=== PATIENT | female | born 1945 | race Caucasian/White ===

== ENCOUNTER 2017-08-02 13:52 | Inpatient (IN) | payer MEDICARE ==
[2017-08-02] MEDS ORDERED: Labetalol HCl 100 MG/20 ML VIAL ONE (14:43)
--- NOTE | 2017-08-02 14:53 | CT ---
CT BRAIN WITHOUT CONTRAST: HISTORY: Right-sided weakness. The patient was given TPA at [place] and now has frontal headache. FINDINGS: Comparison is made to the earlier exam of 12:22 p.m. from the same date. No evidence of acute infarct, hemorrhage, midline shift, or abnormal extraaxial fluid collections ar e seen. 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 The ventricular size is stable and the ci sterns patent. The bony calvarium is intact. IMPRESSION: No CT evidence of acute intracranial process. The report was called over the telephone to ER physician, Dr. Oumar Cox, at 2:12 p.m. CODE CR POS: WILBERT
[2017-08-02] MEDS ORDERED: Mag-Al 1200 mg/1200 mg/30 ML UDCUP PO PRN (14:54)
[2017-08-02] MEDS ORDERED: Guaifenesin DM 100-10/5 ML UDCUP PO PRN (14:54)
[2017-08-02] MEDS ORDERED: Docusate 100 MG CAP PO PRN (14:54)
[2017-08-02] MEDS ORDERED: niCARdipine 20MG in NaCl 200 ML BAG IVPB PRN (14:54)
[2017-08-02] MEDS ORDERED: Labetalol HCl 100 MG/20 ML VIAL SLOW IVP PRN (14:54)
[2017-08-02] MEDS ORDERED: Dextrose 50% Abboject 50 ML SYRINGE SLOW IVP PRN (15:52)
[2017-08-02] MEDS ORDERED: Dextrose 5% in Water 1,000 ML IV PRN (15:52)
[2017-08-02] MEDS ORDERED: HumaLOG 300 UNITS/3 ML VIAL SC PRN ×2 (15:52)
[2017-08-02] MEDS ORDERED: ISOVUE-370 76%-LOCM 1 ML ONE (16:28)
[2017-08-02] MEDS ORDERED: Acetaminophen 325 MG TAB ONE (18:25)
[2017-08-02] MEDS: Sodium Chloride 0.9% 1,000 ML IV SCH (20:55)
[2017-08-02] MEDS ORDERED: Famotidine/PF 20 mg/2ml Vial SLOW IVP SCH (21:00)
[2017-08-02] MEDS: Atorvastatin Calcium 20 MG TAB PO SCH (21:00)
--- NOTE | 2017-08-02 21:45 | HP ---
The patient is city call. REASON FOR ADMISSION: Right hemiparesis, status post TPA. HISTORY OF PRESENT ILLNESS: Please note the majority of this history is obtained by my talking to patient's friend of 25 years who is here at bedside and patient's son, Mr. Green along with ER records as patient is not oriented. She keeps asking where she is and is confused. Per friend who is here, they both were traveling from [place] in the car and she dropped her off prior to noon to her home. Around 11:55 a.m., patient was talking to her daughter over telephone and did not make sense and she told her that she could not feel her right arm. The daughter in turn called her friend and the friend went to check on her personally and she was flailing about her right upper and lower extremities and was confused. She called 911 and the patient was taken to [facility]. Patient was within the window for TPA and was started on it for right hemiparesis. Here in the emergency room at [facility], the patient has been progressively getting confused and a repeat CT head without contrast was done which did not reveal any bleeding. She also had CT angio with perfusion done, the official results are pending at present. PAST MEDICAL AND SURGICAL HISTORY: Diabetes mellitus type 2, dyslipidemia, coronary artery disease with 2 stents put in 10 years ago. Has had some sort of carotid surgery 42 years ago, cholecystectomy, hysterectomy. CURRENT MEDICATIONS: Does not take any medications. ALLERGIES: No known drug allergies. PERSONAL HISTORY: Smokes one pack a day, does not abuse alcohol or drugs. She lives alone and is fully functional. 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 FAMILY HISTORY: Mom at the age of 88 years and father young and it is unclear the exact reason why. Power of assistant district attorney is the patient's son Mr. Green, the number to reach him is [phone]. Patient's daughter, Ms. Jane, the number to reach her is [phone]. REVIEW OF SYSTEMS: Cannot be obtained as patient is confused at present. PHYSICAL EXAMINATION: GENERAL: The patient is a 72-year-old female who is confused, but not in any distress. VITAL SIGNS: Blood pressure on arrival was 206/101 at [place] [facility], pulse 104 per minute, respiratory rate 20 per minute, temperature 98.1 degrees Fahrenheit, saturating 98% on 2 liters nasal cannula. NECK: Supple, no elevated JVD. HEENT: Extraocular muscles intact. Pupils reacting to light. Oral cavity mucous membranes are dry. No exudates or congestion. CARDIOVASCULAR: S1, S2 heard. Loud S2, no murmur. RESPIRATORY: Air entry 1+ bilateral. Scattered rhonchi plus no wheezes or rales. ABDOMEN: Soft, bowel sounds heard. No tenderness, rigidity or guarding. EXTREMITIES: No peripheral edema or calf tenderness. VASCULAR SYSTEM: Peripheral pulses 1+ bilateral. No ischemic ulcerations or gangrene. CENTRAL NERVOUS SYSTEM: Please note patient is confused and cannot participate in neurologic exam. Motor system: Patient appears to have strength of 2-3/5 in the right upper and right lower extremities. Babinski is upgoing in the right and normal on the left. Sensory system and gait cannot be tested due to patient's current confusion. 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 PSYCHIATRIC: The patient appears to be a bit emotional at present. An accurate psychiatric exam cannot be done due to her confusion. LABORATORY AND X-RAY FINDINGS: White count of 11, H\T\H 14 and 44, platelet count 237 with 66% neutrophils, MCV is 81. PT, INR, PTT within normal limits. Electrolytes are fairly stable. BUN 17, creatinine 1.0. Glucose 277. CK level was 25. BNP 210. First set of cardiac enzymes are negative. Albumin is 3.6. She has had 2 CAT scans for the brain without contrast, both show no acute infarct or bleed. Chest x-ray done shows no acute cardiopulmonary abnormalities. There is mild cardiomegaly; otherwise no acute infiltrate. EKG done shows normal sinus rhythm at 92 beats per minute. There is poor R-wave progression. There is also Q-waves in V1 and V2. CLINICAL IMPRESSION AND PLAN: The patient will be admitted to ICU for acute CVA status post TPA with right hemiparesis and confusion at present. She will be on aspirin, Lipitor, Pepcid, and normal saline at 100 mL per hour. We will obtain MRI and follow stroke evidence based protocol. We will also follow status post t-PA protocol in ICU. I have spoken to Dr. Areli Echeverria for Neurology and Dr. Gordon for Pulmonology. The patient is maintaining airway at present. Code status is FULL. I have discussed this with Mr. Green, patient's son and power of assistant district attorney. The number to reach him again is [phone]. We will continue to closely monitor her in critical care unit. Her overall prognosis is guarded due to current CVA with confusion. Also, please note patient has not seen a physician for last 2-3 years or so. She also does not have a primary care physician at present. She continues to smoke one pack a day. 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 JENNY
--- NOTE | 2017-08-02 22:37 | PRG ---
DATE OF SERVICE: 08/02/2017 The patient is status post TPA for a right-sided weakness, going to the ICU. The patient has no [facility]. She is [place]. 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 She developed some right-sided weakness, numbness in the right leg, became wob jojo. The daughter called 911. She was brought to the ER came in with a friend and was given appare ntly TPA. On the TPA, she was transferred to [facility] for high level of care. The patient has longstanding history of hypertension, smoking, peripheral vascular disease, and dacosta tid disease. Surprisingly, she takes no medication at this time. Previous surgeries have otherwise included a previous stent in the left carotid and coronary artery stent. Dr. Salcedo, Neurosurgery was consulted after she was given Activase 100 mg and labetalol 10 mg. She now in the ER trying to transfer out of the ER some time. PHYSICAL EXAMINATION: GENERAL: It is to my surprise, she appears in no distress. NEUROLOGIC: She is awake, alert, responsive, moves all 4 extremities. There may be slight confusio n. VITAL SIGNS: Sats are 98%, blood pressure is 140/80, respirations 18. CHEST: With no wheezing or crackles. CARDIAC: Normal S1, S2. No gallops. ABDOMEN: Soft. No masses. LABORATORY DATA: White count 11, hemoglobin and hematocrit 14 and 44, platelet count is normal. IN R is normal. Sodium is 133. BNP is 210. IMAGING: Chest x-ray was normal. She had 2 sets of CTs of the head pre and Post-TPA apparently. N o evidence of intracranial hemorrhage has been seen. Evidence of stenosis in the intracranial posit ion of both carotid arteries was seen. There was evidence of hemodynamic stenosis on the left inter nal carotid. A repeat CT of the head, no evidence of any acute intracranial process was seen. IMPRESSION: 1. Right-sided weakness, status post TPA. Await head and neck CTA with brain perfusion study. 2. Tobacco abuse. 3. Carotid and coronary stents. 4. Hypertension. PLAN: She will be transferred to the ICU, appears to be stable. Await input from Neurology and [facility] rosurgery. Pulmonary-monroy, nothing additional to offer at this time. We will get more history as p atient becomes more responsive.
[2017-08-03] MEDS: Ondansetron HCl/PF 4 MG/2 ML Vial IVP PRN (04:28)
[2017-08-03] MEDS: Sodium Chloride 0.9% 1,000 ML IV SCH ×3 (04:30→23:07)
[2017-08-03 05:46] LABS: #Eosinphils 0.2 thou/uL (0.0-0.7); #Lymphocytes 2.5 thou/uL (1.20-3.40); #Monocytes 0.5 thou/uL (0.11-0.59); #Neutrophils 9.1 thou/uL (1.40-6.50); %Basophils 0.4 % (0.0-1.0); %Eosinophils 1.5 % (0.0-10.0); %Lymphocytes 19.9 % (21.0-51.0); %Monocytes 4.2 % (0.0-10.0); Hematocrit 39.6 % (36.0-47.0); Mean Platelet Volume 7.8 fL (7.4-10.4); White Blood Cell (WBC) Count 12.4 thou/uL (4.8-10.8)
[2017-08-03 06:07] LABS: ALT (SGPT) Less than 7 U/L (8-55); AST (SGOT) 10 U/L (5-34); Alkaline Phosphatase 69 U/L (40-150); Anion Gap 13 mmol/L (10-20); BUN (Urea Nitrogen) 16 mg/dL (9.8-20.1); Bilirubin, Total 0.8 mg/dL (0.2-1.2); Calc. Creatinine Clearance 81 mL/min (70-130); Calcium 8.7 mg/dL (7.8-10.44); Carbon Dioxide 20 mmol/L (23-31); Chloride 105 mmol/L (98-107); Cholesterol 152 mg/dl (< 200 Desired); Estimated GFR-MDRD 65; Globulin 3.5 g/dL (2.4-3.5); LDL Cholesterol, Calculated 89 mg/dL; Protein, Total 6.6 g/dL (6.0-8.3)
--- NOTE | 2017-08-03 06:13 | CON ---
DATE OF CONSULTATION: 08/02/2017 REFERRING PROVIDER: Sarita Stevens MD REASON FOR CONSULTATION: Acute onset right hemiparesis, confusion, stroke alert initiated. HISTORY OF PRESENT ILLNESS: Ms. Fairchild is a pleasant 72-year-old female who has been cons ulted for evaluation of right hemiparesis, confusion and stroke alert was initiated. History is norris sania obtained from patient's medical chart. Apparently, the patient was traveling with her friend from [place] in the car and she dropped her off to her home around 11:55 a.m. The patient was talking to her daughter over the telephone, did not make sense and she told her that she could not feel her right arm. Daughter in turn called her friend and friend went back to check on her per sonally and she was flailing her right upper and lower extremities and was confused. She immediatel y called 911 and patient was brought to the [facility]. On arrival here, the stroke alert was initiated and patient was given IV TPA by ER physician. The patient had a CT head without contrast, which showed no acute intracranial abnormality. She also had a CT angiogram of the head and neck with perfusion. During my evaluation, the patient was able to answer questions appropriate ly; however, had difficulty with coordination with her right upper extremity. PAST MEDICAL HISTORY: Significant for hypertension, diabetes, dyslipidemia, coronary artery disease with stent placement x2, carotid artery stenosis in the past. PAST SURGICAL HISTORY: Significant for CA, cholecystectomy, hysterectomy. CURRENT MEDICATIONS: Please review MAR. ALLERGIES: No known drug allergies. SOCIAL HISTORY: She smokes 1 pack a day. She does not use any alcohol or illicit drugs. She curre ntly lives alone. She is actively independent. FAMILY HISTORY: Noncontributory. REVIEW OF SYSTEMS: Unable to obtain. PHYSICAL EXAMINATION: VITAL SIGNS: Blood pressure of 151/71, pulse of 82, temperature of 99.1, respirations of 20, O2 sat s of 100% on room air. GENERAL: Well-developed, well-nourished female, in no apparent distress. RESPIRATORY: Clear to auscultation bilaterally. CARDIOVASCULAR: Regular rate and rhythm. NEUROLOGIC: Mental status: The patient is awake, alert, oriented x3. Speech and language: Fluent . Cranial nerves: Pupils are 3 mm and reactive. She does not blink to threat on the right side. Extraocular muscles are intact. No nystagmus is noted. Face appears symmetric. Tongue and uvula a re midline. Motor exam showed normal tone and bulk with 4+/5 strength in the right upper and right lower extremity. She has a pronator drift in the right upper extremity and right lower extremity. Sensory: Sensation appears intact. Deep tendon reflexes 2+ reflexes in both upper and lower extrem ities. Babinski: Plantar responses flexion bilaterally. Coordination: There is mild dysmetria no tabatha on [id number]-adibio testing on the right side. LABORATORY DATA: Reviewed, which included CBC, coag panel, CMP, troponin, CK-MB, CPK and BNP, which is significant for WBC of 11.2, sodium of 133, glucose of 277, BNP of 210, otherwise unremarkable. IMAGING STUDIES: CT head without contrast was reviewed, which showed no acute intracranial abnormal ity. Echocardiogram results were reviewed, which showed ejection fraction of 40%-55% with akinetic motion of the apical and distal septal wall and then left ventricle, mild aortic regurg and mild tri cuspid regurgitation. IMPRESSION: 1. Right hemiparesis, likely secondary to cerebral infarction. 2. Hypertension. 3. Diabetes. 4. Coronary artery disease. Ms. Fairchild is a pleasant 72-year-old female who presented with the acute onset of right-si ded weakness and numbness along with poor coordination on the right side. On exam, she has dysmetri a on right side, right side weakness and right hemianopia. She is now status post IV TPA. At this time, I would recommend having close observation of her neurological function over the next 24 hours . I will recommend not starting her on any antiplatelet or anticoagulation therapy for at least 24 hours post-TPA. Maintain systolic blood pressure between 110 to 170. I would also recommend consul ting PT, OT, speech therapy in the morning. I will obtain MRI brain without contrast in the morning . Continue supportive care. Continue current medical management. Thank you for your consultation.
--- NOTE | 2017-08-03 08:11 | CT ---
PRELIMINARY REPORT/[facility]/EMERGENCY AFTER HOURS PROCEDURE: EXAM: CT Head Without Intravenous Contrast CLINICAL HISTORY: 72 years old, female; Signs and symptoms; Altered mental status/memory loss; Confusion or disorienta tion; Patient HX: AMS TECHNIQUE: Axial computed tomography images of the head/brain without intravenous contrast. COMPARISON: No relevant prior studies available. FINDINGS: Brain: Question left occipital hypodensity images 9-11 versus artifact Chronic right cerebellar infarction No hemorrhage. No significant white matter disease. Ventricles: Unremarkable. No ventriculomegaly. Bones/joints: Unremarkable. No acute fracture. Soft tissues: Unremarkable. Sinuses: Unremarkable as visualized. No acute sinusitis. Mastoid air cells: Unremarkable as visualized. No mastoid effusion. IMPRESSION: Question left occipital mild edema versus artifact. Correlate clinically for left occipital infarcti on. Further evaluation with MRI as clinically indicated No intracranial hemorrhage. Please see discussion above. Thank you for allowing us to participate in the care of your patient. Dictated and Authenticated by: León Bateman MD 08/03/2017 12:37 AM Central Time ([place] \T\ Chris) FINAL REPORT CT HEAD: Comparison made to exam of 08/02/2017. There is new lucency in the left occipital lobe when compared to the prior study. Findings are conc erning for acute occipital lobe infarct. Follow-up is recommended. I am in agreement with the preliminary report. Code QA POS: WILBERT
--- NOTE | 2017-08-03 08:40 | PRG ---
DATE OF SERVICE: 08/03/2017 This morning awake, alert, responsive. PHYSICAL EXAMINATION: VITAL SIGNS: Pulse is 100, blood pressure is 140/80, sats 100%, respirations 18. CHEST: Chest revealed decreased breath sounds, no wheezing. CARDIAC: Normal S1, S2. ABDOMEN: Soft, no masses. IMPRESSION: 1. Status post t-PA for right-sided weakness. 2. Tobacco abuse. PLAN: From a pulmonary standpoint of view MRI is being ordered. She can probably be transferred to a stroke unit. Avoid tobacco abuse. Agree with aspirin. Await input from Neurology.
--- NOTE | 2017-08-03 09:45 | PDOC.PN ---
- Subjective Encounter Start Date: 08/03/17 Encounter Start Time: 09:30 Subjective: is awake, oriented well this morning -: still has unco-ordinated action of right extremities -: speech is better - Objective Resuscitation Status: Resuscitation Status FULL:Full Resuscitation MAR Reviewed: Yes Vital Signs & Weight: Vital Signs (12 hours) Temp Pulse Resp BP Pulse Ox 08/03/17 09:03 101 H 163/76 H 08/03/17 07:00 98.0 F 08/03/17 06:24 101 H 14 98 08/03/17 04:00 97.9 F 08/02/17 22:22 91 18 100 Most Recent Monitor Data Heart Rate from ECG 98 NIBP 141/66 NIBP BP-Mean 79 Respiration from ECG 20 SpO2 99 I&O: 08/02/17 08/03/17 08/04/17 06:59 06:59 06:59 Intake Total 1134.5 Output Total 1930 150 Balance -795.5 -150 Result Diagrams: 08/03/17 04:22 08/03/17 04:22 Additional Labs: Accuchecks 08/03/17 08/03/17 05:28 00:43 POC Glucose 286 H 192 H Phys Exam - Physical Examination HEENT: PERRLA, moist MMs Neck: no JVD, supple Respiratory: no wheezing, no rales Cardiovascular: RRR, no significant murmur Gastrointestinal: soft, non-tender, positive bowel sounds Musculoskeletal: no edema, pulses present Neurological: moves all 4 limbs right hemiparesis Psychiatric: A&O x 3 Dx/Plan (1) CVA (cerebral vascular accident) Code(s): I63.9 - CEREBRAL INFARCTION, UNSPECIFIED Status: Acute Qualifiers: CVA mechanism: unspecified Qualified Code(s): I63.9 - Cerebral infarction, unspecified Comment: right hemiparesis (2) HTN (hypertension) Code(s): I10 - ESSENTIAL (PRIMARY) HYPERTENSION Status: Chronic Qualifiers: Hypertension type: essential hypertension Qualified Code(s): I10 - Essential (primary) hypertension (3) DM type 2 (diabetes mellitus, type 2) Status: Chronic Qualifiers: Diabetes mellitus complication status: with unspecified complications Diabetes mellitus terminal gauger insulin use: without correction use Qualified Code( s): E11.8 - Type 2 diabetes mellitus with unspecified complications (4) Dyslipidemia Code(s): E78.5 - HYPERLIPIDEMIA, UNSPECIFIED Status: Chronic (5) Noncompliance with medication regimen Code(s): Z91.14 - PATIENT'S OTHER NONCOMPLIANCE WITH MEDICATION REGIMEN Status : Chronic - Plan echo shows ef of 45% with wall motion abno, outpt w/u -: has cognitive improvement with confusion resolving -: will start asp, lipitor and norvasc -: oral diet if cleared by speech, d/w over phone and gave updates -: levemir 10u bid for now, oral meds on discharge * . Review of Systems - Medications/Allergies Allergies/Adverse Reactions: Allergies Allergy/AdvReac Type Severity Reaction Status Date / Time No Known Drug Allergies Allergy Verified 08/02/17 19:56 Medications: Current Medications Acetaminophen (Tylenol) 650 mg PO Q6H PRN PRN Reason: Headache/Fever or Pain Al Hydroxide/Mg Hydroxide (Maalox) 30 ml PO QIDPRN PRN PRN Reason: Dyspepsia Albuterol/Ipratropium (Duoneb) 3 ml NEB [id number] [facility] Last Admin: 08/03/17 06:24 Dose: 3 ml Amlodipine Besylate (Norvasc) 10 mg PO DAILY [facility] Last Admin: 08/03/17 09:03 Dose: 10 mg Aspirin (Ecotrin) 325 mg PO DAILY [facility] Atorvastatin Calcium (Lipitor) 20 mg PO HS [facility] Last Admin: 08/02/17 21:00 Dose: 20 mg Dextrose/Water (Dextrose 50%) 25 gm SLOW IVP PRN PRN PRN Reason: Hypoglycemia Docusate Sodium (Colace) 100 mg PO BIDPRN PRN PRN Reason: Constipation Glucagon (Glucagon) 1 mg IM PRN PRN PRN Reason: Hypoglycemia Guaifenesin/Dextromethorphan (Robitussin Dm) 15 ml PO Q4H PRN PRN Reason: Cough Sodium Chloride (Normal Saline 0.9%) 1,000 mls @ 100 mls/hr IV .Q10H [facility] Last Admin: 08/03/17 04:30 Dose: Not Given Dextrose/Water (D5w) 1,000 mls @ 0 mls/hr IV .Q0M PRN; As Directed PRN Reason: Hypoglycemia Insulin Human Lispro (Humalog) 0 units SC .MODERATE SLIDING SC PRN PRN Reason: Moderate Correctional Scale Last Admin: 08/03/17 05:32 Dose: 4 unit Insulin Human Lispro (Humalog) 0 units SC .BEDTIME SLIDING SC PRN PRN Reason: Bedtime Correctional Scale Labetalol HCl (Normodyne) 10 mg SLOW IVP Q2H PRN PRN Reason: SBP > 180 Ondansetron HCl (Zofran) 4 mg IVP Q6H PRN PRN Reason: Nausea/Vomiting Last Admin: 08/03/17 04:28 Dose: 4 mg Sodium Chloride (Flush - Normal Saline) 10 ml IVF Q12HR LUI Last Admin: 08/03/17 09:03 Dose: 10 ml Sodium Chloride (Flush - Normal Saline) 10 ml IVF PRN PRN PRN Reason: Saline Flush
--- NOTE | 2017-08-03 14:25 | MRI ---
MRI BRAIN WITHOUT CONTRAST: HISTORY: CVA. COMPARISON: Multiple prior CTs, the most recent same day at 12:23 a.m. FINDINGS: On the diffusion weighted imaging sequence, there are multifocal areas of acute infarction. This in cludes the left occipital lobe as well as the left and right medial occipital lobes, left thalamus, right posterior limb internal capsule. On the ADC map, there is also a marked hypodensity of the ri ght mid brain, although this does not have abnormal signal on the DWI sequence. 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 Moderate microvascular ischemic changes of the sub cortical and deep white matter. IMPRESSION: Multifocal areas of infarction, largest in the left RECORDINGS LIBRARIAN territory suggesting embolic phenomenon. Re commend echocardiographic evaluation for vegetations of the aortic valve. Bilateral shadowing embol i from carotid plaques are also a possibility. CODE: T POS: WILBERT
--- NOTE | 2017-08-03 15:34 | CT ---
CT ANGIO HEAD WITH AND WITHOUT CONTRAST WITH PERFUSION: HISTORY: Stroke protocol. Right-sided weakness. TECHNIQUE: Multiple axial tomograms obtained through the head without contrast. This was followed by a CT angio of the head with contrast with multiplanar reconstruction and 3D post processing. FINDINGS: Atherosclerotic changes are seen in both intracranial internal carotid arteries. There is significant stenosis in the intracranial left internal carotid artery as it exits the temporal bone in the precavernous segment. The left M1 segment appears unremarkable, as does the left anterior cerebral. The M2 and M3 branches on the left appear intact. There is atherosclerotic change in the intracranial right internal carotid artery as well. There is evidence of high grade stenosis in the intracranial right internal carotid artery in the petrous and precavernous segments. There is also evidence of focal stenosis at the origin of the right M1 segment, at the carotid terminus. The more peripheral M1 segment and the M2 and m3 branches appear patent. the right anterior cerebral is patent. The basilar artery is patent. The posterior cerebrals appear symmetric and patent. Perfusion images show question of ischemia in right cerebral hemisphere on mean transit time study. IMPRESSION: 1. There is evidence of stenosis in the intracranial portion of both internal carotid arteries, as described above. 2. Evidence of focal stenosis at the origin of the right M1 segment. 3. Question ischemia right cerebral hemisphere on perfusion study. CT NECK: TECHNIQUE: Multiple axial tomograms obtained through the neck with IV enhancement with multiplanar reconstruction and 3D post processing. FINDINGS: There is atherosclerotic change at the arch. There is irregular plaque and moderate stenosis at the origin of the left common carotid. There is diffuse plaque throughout the left common carotid artery with an irregular lumen. At the left bifurcation, there is soft and hard plaque extending in the proximal left ICA. This does appear to result in moderate hemodynamically stenosis in the proximal left ICA, probably approaching 50% diameter stenosis. The right common carotid artery shows diffuse plaque throughout its course with no significant stenosis. There is plaque in the right bulb and proximal right ICA; however, no significant stenosis is seen in the right extracranial ICA. Review of soft tissues reveals two enhancing masses involving the left parotid gland. The larger one measures approximately 3 cm in diameter and the smaller, more peripheral one, measures 1.6 cm in diameter. There are two small enhancing nodules along the inferior border of the right parotid, the largest measuring 0.8 cm and the smaller measuring 0.7 cm. IMPRESSION: 1. Atherosclerotic changes at the arch are seen, and there is evidence of moderate stenosis at the origin of the left common carotid. 2. Evidence of hemodynamically significant stenosis at the origin of the left internal carotid artery with stenosis approaching 50% diameter stenosis, according to NASCET criteria. 3. There are bilateral enhancing masses involving both parotids, larger on the left, as described above. Warthin's tumors would be suspected; however, biopsy is indicated. The findings were relayed to Dr. Cox. CODE CR
[2017-08-03] MEDS ORDERED: Insulin Detemir 100 UNITS/ML 10 UNITS in Pre-Filled Syringe 1 EACH SC SCH (21:00)
[2017-08-03] MEDS: Atorvastatin Calcium 20 MG TAB PO SCH (21:16)
[2017-08-03] MEDS: Acetaminophen 325 MG TAB PO PRN (21:25)
--- NOTE | 2017-08-04 02:06 | CON ---
DATE OF CONSULTATION: 08/03/2017 HISTORY OF PRESENT ILLNESS: Vitor Fairchild is a 72-year-old white female who was admitted with right-sided weakness, confusion and difficulty talking. She was taken to emergency room in [place] and had right hemiparesis. She was started on TPA and transferred here. The patient denies any recent chest discomfort or shortness of breath. She states that her speech has improved since yesterday. PAST MEDICAL HISTORY: Diabetes, hypercholesterolemia, coronary artery disease with 2 stents placed 8-10 years ago in [place]. OPERATIONS: Probable right carotid endarterectomy 30 years ago, cholecystectomy , and hysterectomy. MEDICATIONS: None. ALLERGIES: None. SOCIAL HISTORY: She smokes 1 pack per day. She does not drink. 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 FAMILY HISTORY: Negative for coronary artery disease. REVIEW OF SYSTEMS: Difficult to obtain due to the patient's relative aphasia. PHYSICAL EXAMINATION: VITAL SIGNS: Blood pressure 115/69, pulse of 94. HEENT: PERRL. NECK: Supple. CHEST: Clear. CARDIAC: S1 and S2 are normal without any S3, S4 or murmurs. Carotid upstrokes normal without bruits. ABDOMEN: Normal bowel sounds without tenderness or organomegaly. EXTREMITIES: Revealed no clubbing, cyanosis or edema. NEUROLOGIC: The patient has difficulty with vision and word naming. Her right upper extremity strength is equal to the left. Right leg is somewhat weak. SKIN: Warm and dry. LABORATORY DATA: I do not see an EKG on the chart. White count 12,400, hemoglobin 13.0, hematocrit 39.6, platelets 220,000. INR 1.0. Sodium 134, potassium 4.3, chloride 105, carbon dioxide 20, BUN 16, creatinine 0.86. BNP 210.0. Troponin I is normal. Cholesterol 152, triglycerides 137, HDL 36, LDL 89. MRI of the brain revealed multifocal areas of infarction, the largest in the left posterior cerebral artery territory suggesting an embolic phenomenon. It was recommended that a transesophageal echo will be performed to rule out vegetations or intracardiac thrombus. IMPRESSION: 1. Cerebrovascular accident with right-sided weakness and mild aphasia as well as visual changes, treated with TPA. 2. Hypercholesterolemia, untreated. 3. Smoker. 4. Probable right carotid endarterectomy in the past. 5. History of 2 coronary artery stents placed. 6. Noncompliance with aspirin. PLAN: Transesophageal echo will be arranged. MTDD
[2017-08-04] MEDS: Ondansetron HCl/PF 4 MG/2 ML Vial IVP PRN (04:38)
--- NOTE | 2017-08-04 06:50 | PRG ---
DATE OF SERVICE: 08/03/2017 SUBJECTIVE: Ms. Fairchild has noted no significant change in her symptoms over the past 24 hours. She continues to have some confusion. She also continues to neglect her right side. She has a poor co ordination with the right upper extremity. Her son is at bedside. PHYSICAL EXAMINATION: VITAL SIGNS: Blood pressure of 148/70, pulse of 88, temperature 99.7, respirations of 18, O2 sats o f 95% on room air. GENERAL: Well-developed, well-nourished female, in no apparent distress. RESPIRATORY: Clear to auscultation bilaterally. CARDIOVASCULAR: Regular rate and rhythm. NEUROLOGICAL: Mental status: The patient is awake, alert, oriented x2. Speech and language: Appe ars fluent. Cranial nerves: Pupils are 3 mm and reactive. She has a right hemianopia with right n eglect. Extraocular muscles are intact. No nystagmus is noted. Face is symmetric. Motor exam ramya wed normal tone and bulk with 5/5 strength . She has a pronator drift on the right upper and r ight lower extremity. Coordination: Dysmetria to [id number] on the right side. IMAGING STUDIES: MRI brain without contrast was reviewed, which showed multiple embolic ischemic st roke in both the cerebral hemispheres, more prominent in the left occipital and thalamic region. IMPRESSION: 1. Cardioembolic ischemic stroke. 2. Right hemianopia, due to #1. 3. Discoordination, due to #1. Ms. Fairchild is a pleasant 72-year-old female who presented with the right-sided numbness an d weakness and difficulty with speech. She had MRI brain done, which did show an acute ischemic inf arct involving both the cerebral hemispheres, more prominent on the left side compared to the right side. Based on the location of the stroke, this is likely cardioembolic in origin. At this time, I agree with obtaining a transesophageal echocardiogram for further evaluation. If the transesophage al echocardiogram does not elicit the cause for her stroke then it may be important to obtain a loop recording monitor to rule out paroxysmal atrial fibrillation as the cause for her recent cardioembo lic event. I would recommend starting her on aspirin 325 mg daily for secondary stroke prevention. I have discussed with the son in detail and explained the current plan. She will be okay to be dis charged to rehab once medically ready.
--- NOTE | 2017-08-04 07:21 | PDOC.PN ---
- Subjective Encounter Start Date: 08/04/17 Encounter Start Time: 07:19 Subjective: Slept well last night -: Son at bedside -: No f/c - Objective Resuscitation Status: Resuscitation Status FULL:Full Resuscitation MAR Reviewed: Yes Vital Signs & Weight: Vital Signs (12 hours) Temp Pulse Resp BP Pulse Ox 08/04/17 06:00 159/74 H 08/04/17 05:07 94 L 08/04/17 00:00 98 F 76 20 114/57 L 92 L 08/03/17 20:00 99.7 F H 88 18 148/70 H 95 Weight Weight 176 lb 9.6 oz Most Recent Monitor Data Heart Rate from ECG 94 NIBP 115/69 NIBP BP-Mean 91 Respiration from ECG 16 SpO2 99 I&O: 08/03/17 08/04/17 08/05/17 06:59 06:59 06:59 Intake Total 1134.5 2170 Output Total 1930 1955 Balance -795.5 215 Result Diagrams: 08/03/17 04:22 08/03/17 04:22 Additional Labs: Accuchecks 08/03/17 08/03/17 20:05 18:31 POC Glucose 167 H 148 H Phys Exam - Physical Examination Constitutional: NAD HEENT: moist MMs, sclera anicteric Neck: no nodes, no JVD Respiratory: no wheezing, no rales, no rhonchi Gastrointestinal: soft, non-tender, positive bowel sounds Musculoskeletal: pulses present Skin: no rash, normal turgor, cap refill <2 seconds Dx/Plan (1) CVA (cerebral vascular accident) Code(s): I63.9 - CEREBRAL INFARCTION, UNSPECIFIED Status: Acute Qualifiers: CVA mechanism: unspecified Qualified Code(s): I63.9 - Cerebral infarction, unspecified Comment: right hemiparesis (2) DM type 2 (diabetes mellitus, type 2) Status: Chronic Qualifiers: Diabetes mellitus complication status: with unspecified complications Diabetes mellitus assisted insulin use: without assisted use Qualified Code( s): E11.8 - Type 2 diabetes mellitus with unspecified complications (3) Dyslipidemia Code(s): E78.5 - HYPERLIPIDEMIA, UNSPECIFIED Status: Chronic (4) HTN (hypertension) Code(s): I10 - ESSENTIAL (PRIMARY) HYPERTENSION Status: Chronic Qualifiers: Hypertension type: essential hypertension Qualified Code(s): I10 - Essential (primary) hypertension - Plan CVA (Multifocal areas of infarction) - likely cardioembolic etiology * Presented with Right sided weakness/numbness, altered speech * echo shows EF of 40-45% with WMA; needs outpt f/u * Confusion improving * Started ASA, Lipitor, Norvasc * appreciate cardiology input - IZABELA planned * appreciate neurology input * appreciate rehab consult h/o CAD s/p 2 stents * appreciate cardiology input DM2 * increase levemir to 12u bid * f/u accu checks
[2017-08-04] MEDS: Insulin Detemir 100 UNITS/ML 12 UNITS in Pre-Filled Syringe 1 EACH SC SCH ×2 (07:42→21:25)
--- NOTE | 2017-08-04 08:53 | PQF ---
CLINICAL DOCUMENTATION IMPROVEMENT CLARIFICATION FORM: ICD-10 Updated PLEASE DO AN ADDENDUM TO THE PROGRESS NOTE WITH ANY DOCUMENTATION UPDATES OR ADDITIONS AND CARRY THROUGH TO DC SUMMARY. THANK YOU. DATE: 08/04 ATTN : DR. JESSI DAWN Please provide a response below if a more specific term indicating a diagnosis and/or acuity level for this condition can be identified. Please exercise your independent, professional judgment in responding to the clarification form. Clinical indicators are provided at the bottom of this form for your review. Thank you. [x ] Encephalopathy: Type: [ x ] Acute [ ] Subacute [ ] Chronic Etiology: [ ] Hypertensive [ ] Metabolic [ ] Toxic [ ] Toxic Metabolic [ ] No diagnosis of Encephalopathy [ ] Does not apply to this patient [ ] Unable to determine [ ] Other diagnosis: The following CLINICAL INDICATORS - SIGNS / SYMPTOMS are present in the medical record: ER PRESENTATION 08/02: TRANSFER FROM [place] S/P TPA FOR ACUTE ISCHEMIC CVA ; CONFUSED, ORIENTED TO PERSON ATTENDING PHYSICIAN H&P DOCUMENTATION 08/02: ...PATIENT IS NOT ORIENTED. SHE KEEPS ASKING WHERE SHE IS AND IS CONFUSED. PHYSICAL EXAMINATION: AN ACCURATE PSYCHIATRIC EXAM CANNOT BE DONE DUE TO HER CONFUSION NEUROLOGY PN 08/03: SHE CONTINUES TO HAVE SOME CONFUSION; AWAKE, ALERT, ORIENTED X2 ATTENDING PN 08/04: CONFUSION IMPROVING RISKS: ACUTE EMBOLIC CVA HTN - UNTREATED HYPERCHOLESTEROLEMIA, UNTREATED CURRENT SMOKER TREATMENTS: CCU MONITORING NEURO CHECKS NEUROLOGY CONSULT CARDIOLOGY CONSULT THANK YOU! Bailee (This form is maintained as a part of the permanent medical record) 2014 [employer]. All Rights Reserved Bailee Baez RN, BSN [email or web address] Office: [phone] [facility]
--- NOTE | 2017-08-04 09:17 | PRG ---
DATE OF SERVICE: 08/04/2017 This morning, awake, alert, responsive. She has still weakness in the right upper extremity, but no shortness of breath. PHYSICAL EXAMINATION: VITAL SIGNS: Blood pressure is 152/76, sats are 92% on room air, respiration 14, temperature 98. CHEST: Chest revealed decreased breath sounds, no wheezing. CARDIAC: Normal S1-S2. ABDOMEN: Soft, no masses. IMPRESSION: Status post t-PA for right-sided weakness. 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 PLAN: From a pulmonary standpoint of view I have nothing additional to offer. We will continue neb treatments, supportive care, refrain from smoking. We will follow at a distance. Please call if needed.
[2017-08-04] MEDS ORDERED: Diprivan 40 ML ONE (09:58)
[2017-08-04] MEDS ORDERED: Propofol 200 MG/20 ML VIAL ONE (10:08)
[2017-08-04] MEDS: Acetaminophen 325 MG TAB PO PRN (11:37)
[2017-08-04] MEDS: Aspirin 325 mg Enteric Coated Tablet PO SCH (11:38)
[2017-08-04] MEDS: Sodium Chloride 0.9% 1,000 ML IV SCH ×2 (11:38→21:25)
--- NOTE | 2017-08-04 11:43 | ECHO ---
TRANSESOPHAGEAL ECHOCARDIOGRAM: Date: 08/04/17 This is a 72-year-old female with a CVA. She was advised to undergo a transesophageal echocardiogram to rule out evidence of atrial septal defects, patent foramen ovale, or intracardiac thrombi, emilee s, or vegetations. The patient was taken to the recovery area, where she underwent short-acting propofol and the transe sophageal probe was easily passed down the distal esophagus. FINDINGS: 1. Normal left ventricular systolic function. Ejection fraction is estimated at 50-55%. 2. Normal chamber dimensions. 3. Mild to moderate mitral valve regurgitation. 4. Mild tricuspid valve regurgitation. 5. Normal aortic and mitral valve apparatus. 6. No evidence of left atrial or left atrial appendage thrombus. 7. Free flow in the left atrial appendage. 8. No evidence of patent foramen ovale or atrial septal defect. During the procedure, the patient also underwent a bubble study with agitated saline, and again, th ere was no evidence of atrial septal defects or patent foramen ovale. The patient tolerated the procedure well without difficulties. IMPRESSION: Essentially no evidence of intracardiac thrombi, masses, or vegetations, or structural abnormalities that may be the cause for a CVA.
[2017-08-04] MEDS: Atorvastatin Calcium 20 MG TAB PO SCH (21:23)
[2017-08-05 06:13] LABS: Anion Gap 11 mmol/L (10-20); BUN (Urea Nitrogen) 13 mg/dL (9.8-20.1); Calc. Creatinine Clearance 84 mL/min (70-130); Calcium 8.3 mg/dL (7.8-10.44); Carbon Dioxide 23 mmol/L (23-31); Chloride 107 mmol/L (98-107); Estimated GFR-MDRD 70; Magnesium 1.7 mg/dL (1.6-2.6)
[2017-08-05] MEDS: Sodium Chloride 0.9% 1,000 ML IV SCH ×3 (06:45→20:31)
[2017-08-05] MEDS ORDERED: Lidocaine 1% w/Epinephrine 1:200K 30 ML VIAL ONE (06:45)
--- NOTE | 2017-08-05 07:56 | PDOC.PN ---
- Subjective Encounter Start Date: 08/05/17 Encounter Start Time: 07:54 Subjective: s/p loop recorder this AM -: No f/c -: No n/v - Objective Resuscitation Status: Resuscitation Status FULL:Full Resuscitation MAR Reviewed: Yes Vital Signs & Weight: Vital Signs (12 hours) Temp Pulse Resp BP Pulse Ox 08/05/17 04:00 96 08/05/17 03:46 97.3 F L 82 14 126/65 95 08/04/17 23:22 98.6 F 74 12 146/68 H 93 L 08/04/17 20:05 96.2 F L 76 16 94 L Weight Admit Weight 176 lb 9.6 oz Weight 183 lb 1.6 oz Most Recent Monitor Data Heart Rate from ECG 94 NIBP 115/69 NIBP BP-Mean 91 Respiration from ECG 16 SpO2 99 I&O: 08/04/17 08/05/17 08/06/17 06:59 06:59 06:59 Intake Total 2170 3229 Output Total 1955 575 Balance 215 2654 Result Diagrams: 08/03/17 04:22 08/05/17 05:13 Additional Labs: Accuchecks 08/05/17 08/04/17 08/04/17 06:14 21:00 17:24 POC Glucose 121 H 114 H 123 H 08/04/17 08/04/17 11:36 04:15 POC Glucose 133 H 137 H Phys Exam - Physical Examination Constitutional: NAD HEENT: moist MMs, sclera anicteric Neck: no nodes, no JVD Respiratory: no wheezing, no rales, no rhonchi Cardiovascular: RRR, no significant murmur, no rub Gastrointestinal: soft, non-tender, positive bowel sounds Psychiatric: normal affect Skin: no rash, normal turgor Dx/Plan (1) CVA (cerebral vascular accident) Code(s): I63.9 - CEREBRAL INFARCTION, UNSPECIFIED Status: Acute Qualifiers: CVA mechanism: unspecified Qualified Code(s): I63.9 - Cerebral infarction, unspecified Comment: right hemiparesis (2) DM type 2 (diabetes mellitus, type 2) Status: Chronic Qualifiers: Diabetes mellitus complication status: with unspecified complications Diabetes mellitus terminal system operator insulin use: without halfway use Qualified Code( s): E11.8 - Type 2 diabetes mellitus with unspecified complications (3) Dyslipidemia Code(s): E78.5 - HYPERLIPIDEMIA, UNSPECIFIED Status: Chronic (4) HTN (hypertension) Code(s): I10 - ESSENTIAL (PRIMARY) HYPERTENSION Status: Chronic Qualifiers: Hypertension type: essential hypertension Qualified Code(s): I10 - Essential (primary) hypertension - Plan CVA (Multifocal areas of infarction) - likely cardioembolic etiology * Presented with Right sided weakness/numbness, altered speech * echo shows EF of 40-45% with WMA; needs outpt f/u * Confusion improving * Started ASA, Lipitor, Norvasc * appreciate cardiology input - s/p IZABELA on 08-04-17: No PFO, ASD, Intracardiac masses or Valvular vegitations * appreciate neurology input * appreciate rehab consult h/o CAD s/p 2 stents * appreciate cardiology input - s/p loop recorder today DM2 * increased levemir to 12u bid * f/u accu checks
[2017-08-05] MEDS: Insulin Detemir 100 UNITS/ML 12 UNITS in Pre-Filled Syringe 1 EACH SC SCH ×2 (08:36→21:16)
[2017-08-05] MEDS: Aspirin 325 mg Enteric Coated Tablet PO SCH (08:49)
[2017-08-05] MEDS: Atorvastatin Calcium 20 MG TAB PO SCH (20:30)
[2017-08-06 05:47] LABS: Anion Gap 12 mmol/L (10-20); BUN (Urea Nitrogen) 12 mg/dL (9.8-20.1); Calc. Creatinine Clearance 90 mL/min (70-130); Calcium 8.3 mg/dL (7.8-10.44); Carbon Dioxide 19 mmol/L (23-31); Chloride 106 mmol/L (98-107); Estimated GFR-MDRD 76; Magnesium 1.6 mg/dL (1.6-2.6)
--- NOTE | 2017-08-06 07:48 | PDOC.PN ---
- Subjective Encounter Start Date: 08/06/17 Encounter Start Time: 07:46 Subjective: Aspirating per Speech Therapy; +cough -: No n/v -: No f/c - Objective Resuscitation Status: Resuscitation Status FULL:Full Resuscitation MAR Reviewed: Yes Vital Signs & Weight: Vital Signs (12 hours) Temp Pulse Resp BP Pulse Ox 08/06/17 06:52 86 16 96 08/06/17 04:37 98.7 F 83 16 184/76 H 96 08/05/17 23:11 98.2 F 88 18 173/73 H 93 L 08/05/17 20:00 98.2 F 88 18 Weight Admit Weight 176 lb 9.6 oz Weight 183 lb 1.6 oz Most Recent Monitor Data Heart Rate from ECG 94 NIBP 115/69 NIBP BP-Mean 91 Respiration from ECG 16 SpO2 99 I&O: 08/05/17 08/06/17 08/07/17 06:59 06:59 06:59 Intake Total 3229 Output Total 575 Balance 2654 Result Diagrams: 08/03/17 04:22 08/06/17 04:44 Additional Labs: Accuchecks 08/06/17 08/05/17 08/05/17 04:26 20:28 17:01 POC Glucose 96 110 118 H 08/05/17 10:49 POC Glucose 130 H Phys Exam - Physical Examination Constitutional: NAD HEENT: moist MMs, sclera anicteric Neck: no nodes, no JVD Respiratory: no rales, no rhonchi Cardiovascular: no significant murmur, no rub Gastrointestinal: soft, non-tender, positive bowel sounds Lymphatic: no nodes Skin: normal turgor, cap refill <2 seconds Dx/Plan (1) CVA (cerebral vascular accident) Code(s): I63.9 - CEREBRAL INFARCTION, UNSPECIFIED Status: Acute Qualifiers: CVA mechanism: unspecified Qualified Code(s): I63.9 - Cerebral infarction, unspecified Comment: right hemiparesis (2) DM type 2 (diabetes mellitus, type 2) Status: Chronic Qualifiers: Diabetes mellitus complication status: with unspecified complications Diabetes mellitus director long term care insulin use: without director long term care use Qualified Code( s): E11.8 - Type 2 diabetes mellitus with unspecified complications (3) Dyslipidemia Code(s): E78.5 - HYPERLIPIDEMIA, UNSPECIFIED Status: Chronic (4) HTN (hypertension) Code(s): I10 - ESSENTIAL (PRIMARY) HYPERTENSION Status: Chronic Qualifiers: Hypertension type: essential hypertension Qualified Code(s): I10 - Essential (primary) hypertension - Plan CVA (Multifocal areas of infarction) * Presented with Right sided weakness/numbness, altered speech * echo shows EF of 40-45% with WMA; needs outpt f/u * Confusion improving * Started ASA, Lipitor, Norvasc * appreciate cardiology input - s/p IZABELA on 08-04-17: No PFO, ASD, Intracardiac masses or Valvular vegitations * appreciate neurology input * appreciate rehab consult h/o CAD s/p 2 stents * appreciate cardiology input - s/p loop recorder today DM2 * increased levemir to 12u bid * f/u accu checks HTN (not controlled) * will add Lisinopril 20mg daily Dysphagia * ST consulted - Barium swallow scheduled for today Dispo: To ARU when blood pressure is better controlled and dysphagia w/u completed.
[2017-08-06] MEDS: Aspirin 325 mg Enteric Coated Tablet PO SCH (09:49)
[2017-08-06] MEDS: Lisinopril 20 MG TAB PO SCH (09:49)
[2017-08-06] MEDS: Insulin Detemir 100 UNITS/ML 12 UNITS in Pre-Filled Syringe 1 EACH SC SCH ×2 (10:07→22:21)
--- NOTE | 2017-08-06 11:27 | RAD ---
MODIFIED BARIUM SWALLOW: Date: 08/06/17 HISTORY: Recent stroke and dysphagia. Dysphagia, unspecified. Feeding difficulties. FLUOROSCOPY: Total fluoroscopy time is 1.6 minutes with total dose of 5.28 mGy*cm\S\2. FINDINGS: This examination was performed in conjunction with speech pathology. Thin and thick liquid barium an d barium soaked cracker were administered during the exam. The patient demonstrates normal formation of the bolus into the posterior pharynx. There is no significant pooling within the vallecula or pi riform sinuses. No penetration or aspiration was demonstrated. However, there are multiple episodes of gastroesophageal reflux to the upper level of the esophagus, but no aspiration was present with e pisodes of reflux. IMPRESSION: 1. Esophageal reflux noted multiple times during the exam. 2. No aspiration or penetration noted during the study. POS: WILBERT
--- NOTE | 2017-08-06 11:33 | RAD ---
LIMITED ESOPHAGRAM: 08/06/2017 HISTORY: Significant gastroesophageal reflux noted on modified barium swallow. Esophagram was requested. FINDINGS: The patient is unable to stand due to right-sided weakness from a recent CVA. Attempts at placing t he patient on the fluoroscopy table, at a 45 degree angle, were also unsuccessful, due to the patien t unable to tolerate this positioning. However, the patient was placed in an approximately 30 degre e incline position and a single swallow of thin liquid barium was administered. There were signific ant tertiary contractions noted within the esophagus. Contrast did extend into the stomach; however , contrast persisted within the esophagus, even after repeated swallowing. As a result, no addition al barium was administered. Significant tertiary contractions within the esophagus. Due to inability to properly position the p atient, additional barium was not administered for further evaluation of the esophagus on this exam. The distal esophagus does not completely distend for adequate evaluation, and this is primarily re lated to the prominent tertiary contractions proximal to this region. Contrast is seen in the stoma ch. IMPRESSION: Limited esophagram, as the patient was unable to be placed in upright positioning for adequate evalu ation, and only a single swallow of barium was administered, which demonstrated significant tertiary contractions within the mid and distal esophagus. The distal esophagus could not be adequately dis tended on this examination, but this is primarily related to the prominent tertiary contractions pro ximal to this region. Contrast is seen in the stomach. POS: WILBERT
[2017-08-06] MEDS: Sodium Chloride 0.9% 1,000 ML IV SCH ×2 (14:07→20:34)
[2017-08-06 14:59] VITALS: BMI 30.5
[2017-08-06] MEDS: Atorvastatin Calcium 20 MG TAB PO SCH (20:36)
[2017-08-07 05:52] LABS: Anion Gap 11 mmol/L (10-20); BUN (Urea Nitrogen) 13 mg/dL (9.8-20.1); Calc. Creatinine Clearance 84 mL/min (70-130); Calcium 8.3 mg/dL (7.8-10.44); Carbon Dioxide 19 mmol/L (23-31); Chloride 108 mmol/L (98-107); Estimated GFR-MDRD 73; Magnesium 1.7 mg/dL (1.6-2.6)
[2017-08-07 08:38] VITALS: TEMP 98.2
[2017-08-07] MEDS: Sodium Chloride 0.9% 1,000 ML IV SCH (08:49)
[2017-08-07] MEDS: Insulin Detemir 100 UNITS/ML 12 UNITS in Pre-Filled Syringe 1 EACH SC SCH (08:50)
[2017-08-07] MEDS: Aspirin 325 mg Enteric Coated Tablet PO SCH (08:50)
[2017-08-07] MEDS: Lisinopril 20 MG TAB PO SCH (08:50)
[2017-08-07 08:56] VITALS: BP 145/68
--- NOTE | 2017-08-07 10:16 | PDOC.EVN ---
Event Note - Event Note Event Note: DC SUMMARY DICTATED [id number]
--- NOTE | 2017-08-07 18:34 | DIS ---
DATE OF ADMISSION: 08/02/2017 DATE OF DISCHARGE: 08/07/2017 ADMITTING DIAGNOSIS: Right-sided hemiparesis, status post tPA. PAST MEDICAL HISTORY: Type 2 diabetes mellitus, dyslipidemia, CAD, cholecystectomy, hysterectomy. DISCHARGE DIAGNOSES: Multifocal infarction of the left posterior cerebral artery, diabetes mellitus , hypertension, and hyperlipidemia. HOSPITAL COURSE: This is a 72-year-old female admitted to the internal medicine team complaining of symptoms concerning for neurological deficits and cranial infarction. Patient had an imaging study done. 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 Echocardiogram was performed with bubble study, which showed no intra cardiac masses or valvular vegetation. Patient at point in time of discharge was stable to be sent to rehab. Patient had a thorough evaluation performed by Internal Medicine, Neurology, Cardiology a s well as Critical Care Team in the ICU. At that point in time of discharge, patient denied any callie sea, vomiting, diarrhea, constipation, chest pain, fevers, chills, or shortness of breath. Her neur ological deficits has been slowly recovering and was found to be in further need of rehabilitation. Case and plan discussed with daughter and patient at length. They understand to follow up with GI doctor for mild dysphagia concerns at the rehabilitation. DISPOSITION: Discharged to rehabilitation. FOLLOWUP: Follow up with PCP, Neurology, Cardiology, and GI within 1 week. ACTIVITY: As tolerated with assistance. DIET: Low fat, low calorie, high fiber, low salt, cardiac, heart healthy diet. CONDITION: Stable. HOME MEDICATIONS: Prescriptions given for Tylenol 650 mg p.o. q.6 hours p.r.n. pain and fever, aspi rin 325 mg daily, atorvastatin 20 mg daily, insulin Levemir 12 units subcutaneous b.i.d., Zestril 20 mg daily, and Norvasc 5 mg daily. Case and plan again discussed with patient at length as well as her daughter. They understand and a gree with this plan.
== END 2017-08-07 11:15 | DRG 64 ==
LOC: ERS 13:52 → CCU 14:45 → 2SE 08-03 16:06
PROVIDERS: ADMIT Internal Medicine; ATTEND Internal Medicine
PROC: B030ZZZ Magnetic Resonance Imaging (MRI) of Brain (ICD-10-PCS; principal; 2017-08-04)
DX: I63.9 Cerebral infarction, unspecified (principal); G93.40 Encephalopathy, unspecified; G81.91 Hemiplegia, unspecified affecting right dominant side; H53.47 Heteronymous bilateral field defects; E11.9 Type 2 diabetes mellitus without complications; I25.10 Atherosclerotic heart disease of native coronary artery without angina pectoris; I10 Essential (primary) hypertension; E78.5 Hyperlipidemia, unspecified; R13.10 Dysphagia, unspecified; F17.210 Nicotine dependence, cigarettes, uncomplicated; Z95.5 Presence of coronary angioplasty implant and graft; Z92.82 Status post administration of tPA (rtPA) in a different facility within the last 24 hours prior to admission to current facility; Z91.19 Patient's noncompliance with other medical treatment and regimen
CPT/HCPCS: 0042T; 33282; 36415; 36416; 70450; 70496; 70498; 70551; 74220; 74230; 80048; 80053; 80061; 83735; 85025; 86038; 86780; 93005; 93010; 93306; 93312; 94640; 96374; A4216; C1764; G8978-GP-CM; G8979-GP-CK; G8987-GO-CM; G8988-GO-CK; G8996-GN-CI; G8996-GN-CL; G8997-GN-CH; G8997-GN-CI; G8997-GN-CJ; J1815; J2405; J2704; J7620; S0028